=== PATIENT | male | born 1990 | race Caucasian/White ===

== ENCOUNTER 2017-09-09 14:21 | Emergency (ER) | payer OTHER ==
[~2017-09-09] VITALS: Ht 182.9 cm; Wt 72.6 kg
[2017-09-09 14:29] VITALS: BP 127/73
--- NOTE | 2017-09-09 14:34 | NUR ---
Gave report to Hilton ANTHONY
--- NOTE | 2017-09-09 14:35 | NUR ---
PT AMBULATEST TO BED 3
--- NOTE | 2017-09-09 14:36 | NUR ---
27/M BIB SELF with c/o L FLANK PAIN RADIATING TO MID ABD x 3 days with dark red blood stool, fatigue, and lack of appetite. Referred from [facility]. SKIN IS PINK/WARM/DRY; AAOX4 WITH EVEN AND STEADY GAIT; LUNGS CLEAR BL. PATIENT STATES PAIN OF 7/10 AT THIS TIME. PATIENT POSITIONED FOR COMFORT; HOB ELEVATED; BEDRAILS UP X2; BED DOWN. ER MD MADE AWARE OF PT STATUS.
[2017-09-09] MEDS ORDERED: NACL 0.9% 1,000 ML IV ONE (14:50)
[2017-09-09 15:09] LABS: MEAN CORPUSCULAR HEMOGLOBIN 31 pg (27-31); RED CELL DISTRIBUTION WIDTH 13.2 % (11.6-13.7)
[2017-09-09 15:21] LABS: HEMATOCRIT 43.2 % (36-52); HEMOGLOBIN 14.6 g/dL (12.0-18.0); MEAN CORPUSCULAR HGB CONC 34 g/dL (33-37); PLATELET COUNT (AUTO) 170 K/uL (140-450); RED BLOOD CELL COUNT(AUTO) 4.74 MIL/uL (4.20-6.10); WHITE BLOOD COUNT (AUTO) 4.5 K/uL (4.8-10.8)
--- NOTE | 2017-09-09 15:27 | NUR ---
PT TAKEN TO CT VIA [facility] ACCOMPANIED BY [employer] INSPECTOR.
[2017-09-09 15:30] LABS: PROTHROMBIN TIME 12.1 secs (10.8-13.4)
[2017-09-09 15:37] LABS: ANION GAP 11.5 (8-16); CARBON DIOXIDE 29.5 mmol/L (21-32)
[2017-09-09 15:39] LABS: EOSINOPHILS % (MANUAL) 5 % (0-4); LYMPHOCYTES % (MANUAL) 39 % (20-46); MONOCYTES % (MANUAL) 12 % (5-12)
[2017-09-09 15:43] LABS: ALBUMIN 4.1 g/dL (3.4-5.0); TOTAL BILIRUBIN 1.5 mg/dL (0.0-1.0)
--- NOTE | 2017-09-09 16:05 | NUR ---
Patient being reevaluated by DR LARA at bedside.
[2017-09-09 16:11] VITALS: BP 106/65
--- NOTE | 2017-09-09 16:12 | NUR ---
Patient discharged with v/s stable. Written and verbal after care instructions given and explained. Patient alert, oriented and verbalized understanding of instructions. Ambulatory with steady gait. All questions addressed prior to discharge. ID band removed. Patient advised to follow up with PMD. Rx of MIRALAX POWDER given. Patient educated on indication of medication including possible reaction and side effects. Opportunity to ask questions provided and answered.
== END 2017-09-09 16:12 | disposition home or self-care (01) ==
LOC: MED 14:21
DX: K57.30 Diverticulosis of large intestine without perforation or abscess without bleeding (principal); K59.00 Constipation, unspecified
CPT/HCPCS: 36415; 74176; 80053; 81002; 85025; 85610; 85730; 99285; J7030; 96360

== ENCOUNTER 2020-07-13 09:14 | Emergency (ER) | payer OTHER ==
[~2020-07-13] VITALS: Ht 180.3 cm; Wt 86.2 kg
[2020-07-13 09:15] VITALS: BP 124/99
--- NOTE | 2020-07-13 09:20 | NUR ---
Patient ambulated to bed 09 with steady/even gait.
--- NOTE | 2020-07-13 09:24 | NUR ---
Charmaine arrieta in [facility] - 07/13/20 at 0997 by SOBIA 30 y/o M brought in by father with c/c right hand laceration.
--- NOTE | 2020-07-13 09:24 | NUR ---
30 y/o M brought in by father from home with c/c right hand laceration. Patient presents A&Ox4, ambulatory and states he cut his hand while handling a broken windshield. Pt presents with a 1" laceration above 1st digit. Bleeding controlled prior to arrival. Pt reports last tetanus shot >5 years. Reports 5/10 pain. Denies any medications prior to arrival. PMH: HLD Meds: Denies NKA Sx: Denies
[2020-07-13] MEDS ORDERED: BACITRACIN OINT 500 UNITS/GM PKT TP ONE (09:25)
[2020-07-13] MEDS ORDERED: LIDOCAINE MPF 1% 10 MG/ML VIAL INJ ONE (09:25)
--- NOTE | 2020-07-13 09:25 | NUR ---
EMT at bedside for wound debridement.
--- NOTE | 2020-07-13 09:30 | NUR ---
Dr. Oro is evaluating patient at bedside.
--- NOTE | 2020-07-13 10:02 | NUR ---
PT'S LACERATION WAS CLEANED WITH NORMAL SALINE. AFTER ERMD SUTURED WOUND, BACITRATCIN WAS APPLIED ONTO WOUND THEN WRAPPED WITH NON-ADHERENT DRESSING AND IMMANUEL WRAP. ERMD NOTIFIED.
[2020-07-13] MEDS ORDERED: IBUP-2213 PO (10:06)
== END 2020-07-13 10:12 | disposition home or self-care (01) ==
LOC: MED 09:14
DX: S61.011A Laceration without foreign body of right thumb without damage to nail, initial encounter (principal); F12.10 Cannabis abuse, uncomplicated; W26.8XXA Contact with other sharp object(s), not elsewhere classified, initial encounter; Y93.89 Activity, other specified; Y92.89 Other specified places as the place of occurrence of the external cause; Y99.8 Other external cause status
CPT/HCPCS: 12002; 90471; 90715; 99283; J2001